=== PATIENT | female | born 1995 | race Caucasian/White ===

== ENCOUNTER 2024-12-18 01:49 | Emergency (ER) | payer OTHER, SELFPAY ==
[2024-12-18 02:00] VITALS: BP 145/94; PULSE 112; RESP 18; TEMP 36.9; O2SAT 98; BMI 25.8
[2024-12-18 03:15] LABS: Add Manual Diff / Slide Review NO; Basophils Absolute Auto 0 /uL (0-100); Basophils Percent Auto 0.6 % (0-2); Eosinophils Absolute Auto 100 /uL (0-450); Eosinophils Percent Auto 1.4 % (2-4); Hematocrit 44.5 % (36-46); Hemoglobin 15.2 g/dL (12.0-16.0); Lymphocytes Absolute Auto 1600 /uL (1100-4500); Lymphocytes Percent Auto 19.3 % (25-40); Mean Corpuscular HGB Conc 34.2 % (30-36); Mean Corpuscular Hemoglobin 30.4 PG (26-34); Monocytes Absolute Auto 800 /uL (0-900); Monocytes Percent Auto 9.9 % (3-14); Neutrophils Absolute Auto 5600 /uL (1500-7000); Neutrophils Percent Auto 68.8 % (50-75); Platelet Count 385 X10^3/uL (150-400); Red Cell Distribution Width 14.2 % (11.6-14.8); White Blood Cell Count 8.2 X10^3/uL (4.5-11.0)
--- NOTE | 2024-12-18 03:15 | PC.NURSE ---
Pt seen and treated at [facility] for UTI 2 days ago, given Bactrim DS for treatment. She has taken for the last 2 days, but 12/17/24 pain increased.
[2024-12-18 03:29] LABS: Bacteria Urine None Seen; Culture Indicated Urine Cult Not Indicated; RBC Urine None Seen (0-5/HPF); Squamous Epithelial Cell Urine None Seen (0-5/HPF); Urine Volume 10mL (spun); WBC Urine None Seen (0-5/HPF)
--- NOTE | 2024-12-18 03:34 | DI.CT.S_ITS ---
PROCEDURE: CT ABDOMEN PELVIS W CON INDICATIONS: abd pain TECHNIQUE: After the administration of intravenous contrast, axial sections acquired from the lung bases to the pubic symphysis. Coronal and sagittal reformats were performed. For radiation dose reduction, the following was used: automated exposure control, adjustment of mA and/or kV according to patient size. COMPARISON: None. FINDINGS: Image quality: Diagnostic. Lower Chest: No significant findings. ABDOMEN: Liver: No solid mass. Gallbladder: No radiopaque gallstones or wall thickening. Biliary ducts: No biliary dilation. Pancreas: No ductal dilation. Spleen: Size is within normal limits. Adrenal Glands: No adrenal nodules. Kidneys and Ureters: No hydronephrosis. No solid mass. No complex renal cystic lesion which requires follow up. Stomach and Bowel: There is no bowel obstruction. No abscess collection. Nonspecific mild fluid filling of the small bowel loops with mild wall enhancement and thickening is seen predominantly in lower abdomen. Appendix is visualized in right lower quadrant and is within normal limits. Redundant sigmoid colon. Mild sigmoid colon wall thickening in right lower quadrant adjacent to the appendix is noted. No abscess collection. Peritoneum: No abnormal intraperitoneal fluid. No free air. Ventral Wall: No significant ventral hernia. Abdominal Nodes: No retroperitoneal or mesenteric adenopathy by size criteria. Vessels: Aorta and inferior vena cava are normal in size. PELVIS: Pelvic Organs: Unremarkable. Bladder: No bladder wall thickening, accounting for underdistention. Pelvic Nodes: No enlarged lymph nodes. Miscellaneous: No inguinal hernias are seen. Bones: No aggressive osseous abnormality. IMPRESSION: 1. Mild fluid distension of distal small bowel loops with wall enhancement and mild thickening concerning for infectious or inflammatory enteritis. 2. Normal appendix. Redundant sigmoid colon with questionable sigmoid colon wall thickening in right lower quadrant, low-grade colitis cannot be excluded. This could also represent reactive inflammatory changes related to adjacent enteritis. 3. No bowel obstruction. No abscess collection. No free fluid or free air. No significant discrepancies from preliminary reading. Dictated by: Keith Arriola M.D. on 12/18/2024 at 11:46 Approved by: Keith Arriola M.D. on 12/18/2024 at 11:50
--- NOTE | 2024-12-18 03:35 | ED_ITS ---
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 Reports that she has been having this for about 12 hours. Not having nausea and vomiting or fevers. No urinary symptoms at present although she does feel pain in both sides of her upper back. Says that she has been constipated recently, last bowel movement was 2 or 3 days ago, menstrual periods are irregular with the Depo implant and recently treated for urinary tract infection at another facility. Has not had nausea or vomiting. Related Data Allergies Allergy/AdvReac Type Severity Reaction Status Date / Time No Known Allergies Allergy Uncoded 12/18/24 02:07 Exam Initial Vital Signs Initial Vital Signs: Vital Signs Temperature 98.4 F 12/18/24 02:00 Pulse Rate 112 H 12/18/24 02:00 Respiratory Rate 18 12/18/24 02:00 Blood Pressure 145/94 H 12/18/24 02:00 Pulse Oximetry 98 12/18/24 02:00 Oxygen Delivery Method Room Air 12/18/24 02:00 Const General: cooperative and No acute distress HENLA Head: normocephalic and atraumatic Mouth: moist mucous membranes Neck Neck: supple Chest Chest: normal inspection of the chest Resp Effort & Inspection: normal respiratory effort and able to speak in complete sentences Auscultation: clear to auscultation bilaterally Cardio Rate: regular rate Rhythm: regular rhythm Heart Sounds: no murmurs GI Other: Bowel sounds are normal, abdomen is soft with tenderness throughout and voluntary guarding. No rebound no mass. There is a midline surgical scar anteriorly consistent with previous splenectomy. She has no CVAT. Skin General: no rashes or lesions noted and warm Neuro General: patient alert and patient oriented x3 Course Orders Ordered: ED Orders 12/18/24 01:54 Urine Microscopic Stat 12/18/24 03:05 CBC Auto Diff [Complete Blood Count AUTO DIFF] Stat CMP [Comprehensive Metabolic Panel] Stat 12/18/24 03:34 CT abdomen pelvis w con Stat Reevaluation(s) Reevaluation #1: patient is re-evaluated, at this point she would like to go home she is feeling better. Discussed workup results and need for close follow-up. Vital Signs Vital signs: Vital Signs - 8 hr 12/18/24 02:00 Temperature 98.4 F Pulse Rate 112 H Respiratory Rate 18 Blood Pressure 145/94 H Pulse Oximetry 98 Oxygen Delivery Method Room Air MDM - Abdominal Pain Lab Data Lab results narrative: Urinalysis is unremarkable test is negative. CBC with diff is unremarkable CMP shows minimal elevations in AST and ALT probably not clinically significant 12/18/24 03:05 12/18/24 03:05 Labs: Lab Results 12/18/24 12/18/24 Range/Units 01:54 03:05 WBC 8.2 (4.5-11.0) X10^3/uL RBC 5.00 (4.0-5.2) X10^6/uL Hgb 15.2 (12.0-16.0) g/dL Hct 44.5 (36-46) % MCV 89.0 (80-100) fL MCH 30.4 (26-34) PG MCHC 34.2 (30-36) % RDW 14.2 (11.6-14.8) % Plt Count 385 (150-400) X10^3/uL Neut % (Auto) 68.8 (50-75) % Lymph % (Auto) 19.3 L (25-40) % [place] % (Auto) 9.9 (3-14) % Eos % (Auto) 1.4 L (2-4) % Baso % (Auto) 0.6 (0-2) % Neut # (Auto) 5600 (6463-3526) /uL Lymph # (Auto) 1600 (5821-1659) /uL [place] # (Auto) 800 (0-900) /uL Eos # (Auto) 100 (0-450) /uL Baso # (Auto) 0 (0-100) /uL Sodium 139 (137-145) mmol/L Potassium 3.8 (3.4-5.1) mmol/L Chloride 103 (98-107) mmol/L Carbon Dioxide 23 (22-32) mmol/L BUN 13 (7-17) mg/dL Creatinine 0.83 (0.52-1.04) mg/dL Estimated GFR > 60 (>60) mL/min BUN/Creatinine Ratio 15.7 (6-22) Glucose 86 (70-100) mg/dL Calcium 9.2 (8.4-10.2) mg/dL Total Bilirubin 0.3 (0.2-1.3) mg/dL AST 41 H (14-36) IU/L ALT 35 H (<35) IU/L Alkaline Phosphatase 74 (38-126) U/L Total Protein 8.1 (6.3-8.2) g/dL Albumin 4.8 (3.5-5.0) g/dL Globulin 3.3 (1.7-4.1) g/dL Albumin/Globulin Ratio 1.5 (1.0-2.8) Urine RBC None seen (0-5/HPF) Urine WBC None seen (0-5/HPF) Ur Squamous Epith Cells None seen (0-5/HPF) Urine Bacteria None seen (None) Ur Culture Indicated? Cult not indicated Vol Urine Centrifuged 10ml (spun) Point of care testing: Point of Care Testing Test Results Negative Urine Dip Bedside Urine Glucose Negative Bedside Urine Bilirubin - Negative Bedside Urine Ketone - Negative Urine Specific [place] 1.025 Bedside Urine Occult Blood - Negative Bedside Urine pH 6.0 Bedside Urine Protein - Negative Bedside Urine Urobilinogen - Negative Bedside Urine Nitrite - Negative Bedside Urine Leukocytes - Negative Esterase Imaging Data CT scan - abdomen/pelvis: My Impression: independently reviewed CT abdomen and pelvis, no bowel obstruction, does not appear to have appendicitis Radiologist's Impression: per preliminary interpretation inflammatory fat stranding within the right lower quadrant of unclear clinical significance. This is adjacent to decompressed redundant sigmoid colon and a normal appearing appendix. Close follow up recommended. If the symptoms do not resolve consider a repeat CT. [facility] Narrative Medical decision making narrative: 29-year-old female presenting with abdominal pain. Had significant lower abdominal tenderness has a significant surgical history, differential diagnosis includes appendicitis, bowel obstruction, urinary tract infection or pyelonephritis, diverticulitis. Does not have leukocytosis, urine is clean CT shows nonspecific inflammatory stranding in the right lower quadrant with what appears to be a normal appendix. On re-evaluation patient is comfortable with presenting tachycardia resolved. Patient is discharged home, advised of the need for close follow up with rechecked in the emergency department if symptoms persist. Discharge Plan Departure Patient Disposition: Home Clinical Impression: Abdominal pain Qualifiers: Abdominal location: generalized Qualified Code(s): R10.84 - Generalized abdominal pain Instructions: DI for Abdominal Pain-Adult Activity Restrictions/Additional Instructions: emergency department workup today is reassuring. No serious cause for abdominal pain is identified at this point and you appear to be stable. Although at this point there is no clear cause for your symptoms, I do think that they need to be followed closely until they resolve. If you are still symptomatic in 24 hours, please recheck in the emergency department. In the meantime, I recommended clear liquid diet and missed Tylenol and or ibuprofen as needed for pain. If you are having increasing pain frequent vomiting shortness of breath or other acute symptoms return to the emergency department immediately Referrals: [facility], [Other] Stand Alone Forms: Patient Portal/API/Survey
[2024-12-18 04:03] LABS: Alanine Aminotransferase 35 IU/L (<35); Albumin 4.8 g/dL (3.5-5.0); Albumin Globulin Ratio 1.5 (1.0-2.8); Alkaline Phosphatase 74 U/L (38-126); Aspartate Aminotransferase 41 IU/L (14-36); BUN Creatinine Ratio 15.7 (6-22); Bilirubin Total 0.3 mg/dL (0.2-1.3); Blood Urea Nitrogen 13 mg/dL (7-17); Calcium 9.2 mg/dL (8.4-10.2); Carbon Dioxide 23 mmol/L (22-32); Chloride 103 mmol/L (98-107); Estimated Glomerular Filt Rate > 60 mL/min (>60); Globulin 3.3 g/dL (1.7-4.1); Glucose 86 mg/dL (70-100); HEMOLYSIS < 15 (0-50); Potassium 3.8 mmol/L (3.4-5.1); Sodium 139 mmol/L (137-145); Total Protein 8.1 g/dL (6.3-8.2)
== END 2024-12-18 06:06 | disposition home or self-care (01) ==
PROVIDERS: Emergency Provider Emergency Medicine
DX: R10.84 Generalized abdominal pain (principal); M54.89 Other dorsalgia; Z90.81 Acquired absence of spleen
CPT/HCPCS: 74177; 80053; 81003; 81015; 81025; 85025; 99282; 99284; Q9967